=== PATIENT | female | born 1960 | race Two or more races ===

== ENCOUNTER 2024-07-09 16:35 | Emergency (ER) | payer MEDICARE, MEDICAID, SELFPAY ==
[2024-07-09 16:38] VITALS: BP 126/47; PULSE 49; RESP 20; TEMP 36.7; O2SAT 98
[2024-07-09 16:42] VITALS: PULSE 58; RESP 16; O2SAT 99; BMI 29.0
--- NOTE | 2024-07-09 16:51 | EDNOTE_ITS ---
ED General RME/HPI General Chief complaint: General Adult/Misc Complain Stated complaint: bradycardia Time Seen by Provider: 07/09/24 16:46 Arrival date/time: 07/09/24 16:35 RME / HPI RME / HPI narrative: DR. KNOWLES MAIN ED EVALUATION: 64 year old female with a history of massive CVA, bedbound, nonverbal with PEG tube dependent, who presents to the Emergency Department [facility] where correction staff had noticed that she was bradycardic to the 40s and hypotensive and an amp of atropine was given and EMS was activated. Patient is nonverbal without complaints. Related Data Home Medications ?Medication ?Instructions ?Recorded ?Confirmed alprazolam 0.5 mg tablet 0.5 mg feeding tube BID 02/08/22 05/19/24 hydrocodone 5 mg-acetaminophen 325 1 tab feeding tube Q8H PRN Pain 04/02/22 05/19/24 mg tablet polyethylene glycol 3350 17 gram 17 g feeding tube QDAY 04/02/22 05/17/24 oral powder packet (Miralax) tramadol 50 mg tablet 50 mg feeding tube QDAY PRN 04/02/22 05/19/24 Moderate Pain (Scale Score 5-6) amlodipine 10 mg tablet 10 mg feeding tube QDAY Elevated 09/27/23 05/19/24 Blood Pressure empagliflozin 25 mg tablet 25 mg PO QDAY Diabetes Mellitus 09/27/23 05/19/24 (Jardiance) guaifenesin 400 mg tablet 400 mg PO Q4H PRN Congestion 09/27/23 05/19/24 levetiracetam 500 mg tablet 500 mg PO BID Seizures 09/27/23 05/19/24 magnesium hydroxide 400 mg/5 mL 30 ml feeding tube Q72H PRN 09/27/23 05/19/24 oral suspension (Milk of Magnesia) Constipation bisacodyl 10 mg rectal suppository 10 mg MD QDAY PRN Constipation 09/28/23 05/17/24 (Dulcolax (bisacodyl)) cranberry fruit 450 mg tablet 450 mg feeding tube BID 09/28/23 05/17/24 (cranberry) white petrolatum-mineral oil 57.3 1 applic ophthalmic (eye) BID 09/28/23 05/19/24 %-42.5 % eye ointment (Refresh P.M.) epoetin sandro 20,000 unit/mL 20,000 unit subcut QWEEK 03/01/24 05/17/24 injection solution (Epogen) [id number] 1 tab feeding tube QDAY 03/02/24 05/17/24 tablet (Multivitamin 50 Plus tablet) white petrolatum-mineral oil 83 1 applic ophthalmic (eye) Q6H PRN 03/02/24 05/19/24 %-15 % eye ointment (Artificial Eye Irritation Eye Lubricant) acetaminophen 325 mg chewable 650 mg PO [id number] PRN Mild Pain 04/07/24 05/19/24 tablet (Scale Score 1-4) atorvastatin 20 mg tablet 20 mg feeding tube QPM 04/07/24 05/17/24 docusate sodium 100 mg tablet 100 mg PO BID 04/07/24 05/17/24 hydralazine 100 mg tablet 100 mg feeding tube BID 04/07/24 05/19/24 insulin aspart U-100 100 unit/mL 1 sliding scale dose subcut AC PRN 04/07/24 05/17/24 subcutaneous solution (Novolog Hyperglycemia U-100 Insulin aspart) insulin glargine 100 unit/mL 21 unit subcut HS Diabetes 04/07/24 05/19/24 subcutaneous solution (Lantus U-100 Insulin) lactulose 20 gram/30 mL oral 30 g feeding tube BID 04/07/24 05/19/24 solution pen needle, diabetic, safety 30 04/07/24 05/19/24 gauge x 1/3 sodium phosphates 19 gram-7 118 ml MD Q72H PRN Constipation 04/07/24 05/19/24 gram/118 mL enema (Fleet Enema) Saccharomyces boulardii 250 mg 250 mg feeding tube DAILY 05/17/24 05/18/24 capsule (Probiotic (S.boulardii)) apixaban 2.5 mg tablet 2.5 mg feeding tube BID 05/17/24 05/17/24 doxycycline hyclate 100 mg capsule 100 mg feeding tube BID 05/17/24 05/17/24 ipratropium bromide 0.02 % 0.5 mg continuous nebulization 05/17/24 05/17/24 solution for inhalation Q8HR SOB Previous Rx's ?Medication ?Instructions ?Recorded amiodarone 200 mg tablet 200 mg PO QDAY #14 tabs 05/19/24 baclofen 5 mg tablet 5 mg PO HS #14 tabs 05/19/24 Allergies Allergy/AdvReac Type Severity Reaction Status Date / Time No Known Allergies Allergy Verified 12/17/21 13:46 Review of Systems Review of Systems Systems Reviewed: All systems reviewed, normal except as documented Past Medical History Past Medical History NEUROLOGIC: Positive Neurological Disorders, Cerebrovascular Accident, Seizures and Paralysis CARDIAC: Positive Cardiac Disorders, Atrial Fibrillation, Coronary Artery Disease, Atherosclerotic Heart Disease, Peripheral Vascular Disease, Cardiomyopathy and Hypertension GENITOURINARY: Positive Renal Disease ENT: Positive Cataracts ENDOCRINE: Positive Endocrine Disorders and Diabetes Mellitus Type 2 HEMATOLOGIC: Positive Anemia OTHER HISTORY: Positive Hospitalization Surgical History SURGICAL: Positive Gastrostomy Social History SMOKING STATUS: Never smoker SECOND HAND EXPOSURE: No SUBSTANCE USE: does not use ALCOHOL: Never ED Exam Narrative Physical exam: GENERAL APPEARANCE: AxOx4, chronically ill-appearing, bedbound, she does acknowledge her name, maintains good eye contact HEENT: NC, AT. MMM. EOMI, clear conjunctiva, oropharynx clear. NECK: Supple without lymphadenopathy. No stiffness or restricted ROM. HEART: Normal rate and regular rhythm, normal S1/S1, no m/r/g LUNGS: CTAB, moving air well. No crackles or wheezes are heard. ABDOMEN: PEG tube in the left upper quadrant which is clean dry and intact soft, nontender, nondistended with good bowel sounds heard. BACK: No midline C/T/L spine pain or deformity, No CVAT, no obvious deformity. EXTREMITIES: Without cyanosis, clubbing or bilateral lower extremity 2+ edema. MUSCULOSKELETAL: FROM of all major joints, no chest tenderness NEUROLOGICAL: Grossly nonfocal. Awake and acknowledges to her name, paralysis to the right upper and right lower extremity with decreased muscle tone and atrophy. CN not formally tested but appear grossly intact. Bedbound Skin: Warm and dry without any rash. Course Quality Measures none Orders Category Date Time Status XR chest 1V Stat Exams 07/09/24 16:53 Taken CBC Stat Lab 07/09/24 16:49 Ordered CMP [Comprehensive Metabolic Panel] Stat Lab 07/09/24 16:49 Ordered Magnesium Stat Lab 07/09/24 16:49 Ordered Partial Thromboplastin Time Stat Lab 07/09/24 16:50 Ordered Prothrombin Time with INR Stat Lab 07/09/24 16:50 Ordered Troponin I Stat Lab 07/09/24 16:49 Ordered Vital Signs Vital signs: Vital Signs Temperature 98.1 F 07/09/24 16:38 Pulse Rate 49 L 07/09/24 16:38 Respiratory Rate 20 07/09/24 16:38 Blood Pressure 126/47 L 07/09/24 16:38 Pulse Oximetry (%) 98 07/09/24 16:38 Oxygen Delivery Method Room Air 07/09/24 16:38 SpO2 98% on room air, not hypoxic MDM Patient data External records reviewed:: [facility] previous records (Recent admission May 2024 for A-fib bradycardia, no pacemaker was placed at that point, amiodarone was decreased to 200 mg daily) Clinical information provided by:: EMS Social determinants that could affect healthcare access:: none Patient has the following chronic illnesses:: Hemiplegia and hemiparesis affecting right side following CVA, nonverbal at baseline, paroxysmal atrial fibrillation, hypertension, diabetes, anemia in CKD, s/p PEG tube. How is presenting disease/condition affected by chronic disease/condition?: exacerbated by Evaluation data The following diagnostics were reviewed and interpreted by me:: lab results and radiology exam(s) Lab and/or radiology exams considered but not ordered:: Workup in progress Interpretation Summary: Workup in progress Medications Medications considered but not ordered:: Workup in progress Medication administrations:: Workup in progress Consultations Consultation(s) initiated? (list below): No Diagnosis Differential Diagnosis ED Complaint MDM: Workup in progress Most likely diagnosis given after review of the tests above:: Workup in progress Admission Indicated Admission indicated?: indicated Explain why admission is indicated or not indicated:: Workup in progress Admission Request Was there a request for admission?: No Disposition Plan Disposition Plan: other (specify) (Workup in progress) Medical Decision Making MDM Narrative MDM Narrative: ISharmin am scribing for and in the presence of Dr. Knowles. Differential Diagnosis Differential Diagnosis: Workup in progress Critical Care Time Critical Care Time Critical Care Time: Yes Total Critical Care Time (min.): 35 Attestation: Excluding billable procedures for the rep response, analysis, management, treatment, and documentation to vent the very possible risk of cardiovascular decompensation and/or Discharge Plan Prescriptions/Referrals Prescriptions/Med Rec: No Action hydrocodone-acetaminophen 5-325 mg Tablet 1 tab feeding tube Q8H PRN (Reason: Pain) tramadol 50 mg Tablet 50 mg feeding tube QDAY PRN (Reason: Moderate Pain (Scale Score 5-6)) polyethylene glycol 3350 [Miralax] 17 gram Powder In Packet 17 g feeding tube QDAY alprazolam 0.5 mg Tablet 0.5 mg feeding tube BID Epogen 20,000 unit/mL Solution 20,000 unit SUBCUT QWEEK Rx Instructions: Every Tuesday Artificial Eye Lubricant 83-15 % Ointment 1 applic OPHTHALMIC (EYE) Q6H PRN (Reason: Eye Irritation) Multivitamin 50 Plus Tablet 1 tab feeding tube QDAY atorvastatin 20 mg Tablet 20 mg feeding tube QPM docusate sodium 100 mg Tablet 100 mg PO BID acetaminophen 325 mg Tablet,Chewable 650 mg PO [id number] PRN (Reason: Mild Pain (Scale Score 1-4)) hydralazine 100 mg Tablet 100 mg feeding tube BID Hold Instructions: Resume on 04/13/24. hold , follow up with PCP, close monitor BP before restarting Rx Instructions: hold for sbp<120, dbp<60, hr<60 Fleet Enema 19-7 gram/118 mL Enema 118 ml MD Q72H PRN (Reason: Constipation) (DME) pen needle, diabetic, safety 30 gauge x 1/3 Needle lactulose 20 gram/30 mL Solution 30 g feeding tube BID insulin glargine [Lantus U-100 Insulin] 100 unit/mL solution 21 unit SUBCUT HS insulin aspart U-100 [Novolog U-100 Insulin aspart] 100 unit/mL Solution 1 sliding scale dose SUBCUT AC PRN (Reason: Hyperglycemia) Rx Instructions: 150-199=2 units, 200-249=3 units, 250-299=6 units, 300-349=9 units, 400- 450=12 units, notify amlodipine 10 mg Tablet 10 mg feeding tube QDAY guaifenesin 400 mg Tablet 400 mg PO Q4H PRN (Reason: Congestion) Jardiance 25 mg Tablet 25 mg PO QDAY levetiracetam 500 mg Tablet 500 mg PO BID magnesium hydroxide [Milk of Magnesia] 400 mg/5 mL Suspension 30 ml feeding tube Q72H PRN (Reason: Constipation) bisacodyl [Dulcolax (bisacodyl)] 10 mg Suppository 10 mg MD QDAY PRN (Reason: Constipation) cranberry 450 mg Tablet 450 mg feeding tube BID Rx Instructions: administer with meals Refresh P.M. 57.3-42.5 % Ointment 1 applic OPHTHALMIC (EYE) BID Rx Instructions: right eye ipratropium bromide 0.02 % Solution 0.5 mg continuous nebulization Q8HR apixaban 2.5 mg Tablet 2.5 mg feeding tube BID doxycycline hyclate 100 mg Capsule 100 mg feeding tube BID Rx Instructions: END 05/28/24 Saccharomyces boulardii [Probiotic (S.boulardii)] 250 mg Capsule 250 mg feeding tube DAILY amiodarone 200 mg tablet 200 mg PO QDAY Qty: 14 0RF baclofen 5 mg tablet 5 mg PO HS Qty: 14 0RF Problem List Clinical Impression: Atrial fibrillation, chronic, Tachy-iesha syndrome Patient/Caregiver Discharge Instructions Print Language: Setswana
--- NOTE | 2024-07-09 16:53 | XR_ITS ---
Examination: AP chest single view TECHNIQUE: AP portable sitting chest single view Exam date and time: July 09, 2024 at 1707 hours INDICATIONS: Weakness today FINDINGS: Mild prominence left ventricle Vascular congestion No lobar pneumonia or pulmonary edema Prominent osteopenia IMPRESSION: Mild to moderate vascular congestion
--- NOTE | 2024-07-09 17:37 | PC.NURSE ---
Pt resting on stretcher, remains iesha on tele in the mid 50s, provider aware. Pt on o2 via NC spo2 100%. Pt non-verbal has peg tube. call hughes in reach.
[2024-07-09 18:11] LABS: Basophils % (Auto) 1 % (0-2.5); Eosinophils # (Auto) 0.1 Thou/mm3 (0.0-0.5); Eosinophils % (Auto) 2 % (0-10); Hematocrit 43.8 % (36.0-46.0); Hemoglobin 13.8 g/dL (12.0-16.0); Immature Granulocytes % (Auto) 0 % (0-0); Immature Granulocytes Auto 0.01 Thou/mm3 (0.00-0.00); Lymphocytes # (Auto) 1.3 Thou/mm3 (1.0-4.8); Lymphocytes % (Auto) 27 % (10-50); Mean Corpuscular HGB Conc 31.5 g/dl (31.0-37.0); Mean Corpuscular Hemoglobin 28.9 pg (25.0-35.0); Mean Corpuscular Volume 92 fL (80-100); Monocytes # (Auto) 0.7 Thou/mm3 (0.0-0.8); Monocytes % (Auto) 15 % (0-12); Neutrophils # (Auto) 2.6 Thou/mm3 (1.8-7.7); Neutrophils % (Auto) 56 % (37-80); Nucleated Red Blood Cell % 0 /100 WBC (0); Platelet Count 179 Thou/mm3 (140-440); RDW Standard Deviation 57.9 fL (36.4-46.3); Red Blood Count 4.78 Miln/mm3 (4.00-5.20); White Blood Count 4.7 Thou/mm3 (3.6-11.0)
[2024-07-09 18:22] LABS: Partial Thromboplastin Time 27.6 Seconds (22.0-36.0); Prothrombin Time 10.6 Seconds (9.0-12.2)
[2024-07-09 18:31] LABS: Alanine Aminotransferase 14 U/L (10-49); Albumin, Serum 4.4 gm/dL (3.4-4.8); Albumin/Globulin Ratio 1.3 (1.2-2.2); Alkaline Phosphatase 108 U/L (46-116); Anion Gap 10 (7-16); Aspartate Amino Transferase 27 U/L (0-34); BUN/Creatinine Ratio 18 Ratio (12-20); Bilirubin,Total 0.3 mg/dL (0.3-1.2); Blood Urea Nitrogen 23 mg/dL (9-23); Calcium 9.6 mg/dL (8.3-10.6); Calcium (Corrected) 9.6 mg/dL (8.5-10.1); Carbon Dioxide 26.6 mMol/L (20.0-31.0); Chloride 99 mMol/L (98-107); Creatinine (Component) 1.3 mg/dL (0.6-1.3); Estimated Creatinine Clearance 45.9 mL/min (>60); Globulin 3.5 gm/dL (2.3-3.5); Glucose 130 mg/dL (74-106); Magnesium 2.2 mg/dL (1.6-2.6); Osmolality,Calculated 277 (275-295); Potassium 4.1 mMol/L (3.4-5.1); Sodium 136 mMol/L (136-145); Total Protein 7.9 gm/dL (5.7-8.2); Troponin I 0.021 ng/mL (0.0-0.045); eGFR 45 See Note
[2024-07-09 18:58] VITALS: BP 132/84; PULSE 57; RESP 17; TEMP 36.5; O2SAT 97
--- NOTE | 2024-07-09 19:39 | EDNOTE_ITS ---
Emergency Room Addendum Addendum Narrative: I took over the care from Dr. Knowles at 6 PM on 07/09/2024, see his notes for complete H&P and ED course. I reviewed all diagnostic test results. I discussed the case with Dr. Pena (patient's armor reconnaissance vehicle driver). About the presentation and exam and diagnostics and treatments here. And possible need of further care in the hospital. After evaluation in person, he recommended discharge back to the skilled nursing with no changes to her medications, see his consult note. Discharge Instructions from Dr. De Anda: 1. After extensive evaluation, including consult with your armor reconnaissance vehicle driver (Dr. Pena) who saw you in person today, you are being discharged back to your skilled nursing. 2. Unfortunately, you have to live with slow heart rate. Because if you don't take the medication to slow your heart rate, your atrial fibrillation will develop into very fast heart rate which can cause more trouble. 3. Your armor reconnaissance vehicle driver wants you to take all your current medications. 4. He wants to see you in his office on 07/11/2024 for recheck and further care. 5. Seek immediate medical care with worsening or with any concerns. Caleb De Anda MD
[2024-07-09 21:50] VITALS: BP 155/64; PULSE 44; RESP 16; O2SAT 100
--- NOTE | 2024-07-09 22:06 | PC.NURSE ---
Called [facility] and spoke to Graciela BOYLE to whom i gave report too
[2024-07-09 22:23] VITALS: BP 149/72; PULSE 47; RESP 18; TEMP 36.8; O2SAT 99
--- NOTE | 2024-07-09 22:59 | PD.RESCONSUL ---
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 In the ED when she presented the patient was in sinus bradycardia fluctuating between 35-40 heart rate. No history could be taken as the patient is nonverbal at baseline; all history has been taken from chart review. During physical examination, patient appears to be comprehending but is not able to respond to questions; infrequently nods her head to questioning. Medical History: as above Surgical history:PEG placement Medications: as listed Allergies: NKDA FamHx: Positive cardiac history in first degree relative SocHx: Patient is a long time patient at [facility], no etoh, tobacco or illicit drug use ROS: Unable to obtain as patient is nonverbal In the ED, patient's heart rate was 49, blood pressure 126/47, respiratory rate 20, satting 98% on RA. Pertinent lab findings include a white blood cell count of 4.7, hemoglobin 13.8, MCV of 92, platelets 179. potassium 4.1, bicarb of 26.6, glucose of 130, EGFR of 45(baseline CKD stage IIIb), troponin was negative EKG showed atrial fibrillation with slow ventricular rate, left axis deviation, rate 62. Cardiology was consulted for bradycardia cc:: cc: Review of Systems Review of Systems ROS Unobtainable: unobtainable due to mental status Exam Vital Signs Temp Pulse Resp BP Pulse Ox O2 Del Method 98.3 F 47 L 18 149/72 H 99 Room Air 07/09/24 22:23 07/09/24 22:23 07/09/24 22:23 07/09/24 22:23 07/09/24 22:23 07/09/24 21:50 Narrative Exam Constitutional Alert, oriented x 0 and comfortable HEENT Vision grossly intact. Patent nares. Trachea midline Respiratory Chest normal on inspection and clear auscultation bilaterally Cardiovascular S1 and S2 audible, RRR. No murmurs carotid bruit. No gross JVD. Abdominal Soft and non tender to palpation in all quadrants. BS + Genitourinary No bladder tenderness, no flank pain. Normal to palpation Musculoskeletal Extremities tone within normal limits. No LE edema. Skin Warm, dry and intact. No apparent lesions. Results Labs 07/09/24 17:31 07/09/24 17:31 Labs: Short CBC 07/09/24 Range/Units 17:31 WBC 4.7 (3.6-11.0) Thou/mm3 Hgb 13.8 (12.0-16.0) g/dL Hct 43.8 (36.0-46.0) % Plt Count 179 (140-440) Thou/mm3 BMP 07/09/24 17:31 Sodium 136 Potassium 4.1 Chloride 99 Carbon Dioxide 26.6 BUN 23 Creatinine 1.3 Glucose 130 H Calcium 9.6 Cardiac Enzymes 07/09/24 Range/Units 17:31 Troponin I 0.021 (0.0-0.045) ng/mL Liver Function 07/09/24 Range/Units 17:31 Total Bilirubin 0.3 (0.3-1.2) mg/dL AST 27 (0-34) U/L ALT 14 (10-49) U/L Alkaline Phosphatase 108 (46-116) U/L Albumin 4.4 (3.4-4.8) gm/dL Quality Measures Quality Measures none Advance care planning discussed with:: other Medications Home Medications and Allergies Home Medications ?Medication ?Instructions ?Recorded ?Confirmed ?Type alprazolam 0.5 mg tablet 0.5 mg feeding tube BID 02/08/22 05/19/24 History hydrocodone 5 mg-acetaminophen 325 1 tab feeding tube Q8H PRN Pain 04/02/22 05/19/24 History mg tablet polyethylene glycol 3350 17 gram 17 g feeding tube QDAY 04/02/22 05/17/24 History oral powder packet (Miralax) tramadol 50 mg tablet 50 mg feeding tube QDAY PRN 04/02/22 05/19/24 History Moderate Pain (Scale Score 5-6) amlodipine 10 mg tablet 10 mg feeding tube QDAY Elevated 09/27/23 05/19/24 History Blood Pressure empagliflozin 25 mg tablet 25 mg PO QDAY Diabetes Mellitus 09/27/23 05/19/24 History (Jardiance) guaifenesin 400 mg tablet 400 mg PO Q4H PRN Congestion 09/27/23 05/19/24 History levetiracetam 500 mg tablet 500 mg PO BID Seizures 09/27/23 05/19/24 History magnesium hydroxide 400 mg/5 mL 30 ml feeding tube Q72H PRN 09/27/23 05/19/24 History oral suspension (Milk of Magnesia) Constipation bisacodyl 10 mg rectal suppository 10 mg KS QDAY PRN Constipation 09/28/23 05/17/24 History (Dulcolax (bisacodyl)) cranberry fruit 450 mg tablet 450 mg feeding tube BID 09/28/23 05/17/24 History (cranberry) white petrolatum-mineral oil 57.3 1 applic ophthalmic (eye) BID 09/28/23 05/19/24 History %-42.5 % eye ointment (Refresh P.M.) epoetin sandro 20,000 unit/mL 20,000 unit subcut QWEEK 03/01/24 05/17/24 History injection solution (Epogen) [id number] 1 tab feeding tube QDAY 03/02/24 05/17/24 History tablet (Multivitamin 50 Plus tablet) white petrolatum-mineral oil 83 1 applic ophthalmic (eye) Q6H PRN 03/02/24 05/19/24 History %-15 % eye ointment (Artificial Eye Irritation Eye Lubricant) acetaminophen 325 mg chewable 650 mg PO [id number] Mild Pain 04/07/24 05/19/24 History tablet (Scale Score 1-4) atorvastatin 20 mg tablet 20 mg feeding tube QPM 04/07/24 05/17/24 History docusate sodium 100 mg tablet 100 mg PO BID 04/07/24 05/17/24 History hydralazine 100 mg tablet 100 mg feeding tube BID 04/07/24 05/19/24 History insulin aspart U-100 100 unit/mL 1 sliding scale dose subcut AC PRN 04/07/24 05/17/24 History subcutaneous solution (Novolog Hyperglycemia U-100 Insulin aspart) insulin glargine 100 unit/mL 21 unit subcut HS Diabetes 04/07/24 05/19/24 History subcutaneous solution (Lantus U-100 Insulin) lactulose 20 gram/30 mL oral 30 g feeding tube BID 04/07/24 05/19/24 History solution pen needle, diabetic, safety 30 04/07/24 05/19/24 History gauge x 1/3 sodium phosphates 19 gram-7 118 ml KS Q72H PRN Constipation 04/07/24 05/19/24 History gram/118 mL enema (Fleet Enema) Saccharomyces boulardii 250 mg 250 mg feeding tube DAILY 05/17/24 05/18/24 History capsule (Probiotic (S.boulardii)) apixaban 2.5 mg tablet 2.5 mg feeding tube BID 05/17/24 05/17/24 History doxycycline hyclate 100 mg capsule 100 mg feeding tube BID 05/17/24 05/17/24 History ipratropium bromide 0.02 % 0.5 mg continuous nebulization 05/17/24 05/17/24 History solution for inhalation Q8HR SOB Allergies Allergy/AdvReac Type Severity Reaction Status Date / Time No Known Allergies Allergy Verified 12/17/21 13:46 Assessment & Plan Plan A 64-year-old female with a past medical history of paroxysmal atrial fibrillation on amiodarone, possible sick sinus syndrome with history of bradycardia, diastoolic CHF, history of CVA with residual right hemiparesis, 2019 with large infarct left MCA distribution, then with multiple small infarcts in 2021 left and right parietal lobe, nonverbal at baseline, CKD stage III, essential hypertension, hyperlipidemia, type 2 diabetes mellitus, history of chronic anemia, no clear history of GI bleed with no previous EGD as hemoglobin was stable, history of recurrent sepsis secondary to UTI, status post PEG tube after the stroke, history of hydronephrosis, bedbound with contractures was sent in from the [facility] to the emergency department for further evaluation bradycardia. Patient was found to have severe bradycardia upon arrival to the emergency department with a heart rate of around 30 to 40 bpm. Cardiology was consulted for further evaluation. Patient well-known to me from previous admission in March 2024 when patient did present with bradycardia in the setting of severe hyperkalemia secondary to acute kidney injury on chronic kidney disease stage III. Patient did have paroxysmal atrial fibrillation and was started on amiodarone and metoprolol XL but patient did have prolonged pauses along with some bradycardia again and hence metoprolol XL was stopped and patient was just placed on amiodarone 200 mg once daily with which she did well. Patient was also recommended to start on Eliquis 2.5 mg twice daily for anticoagulation and also recommended to do aspirin 81 mg once daily. Patient was discharged on Eliquis 2.5 mg twice daily. Patient today presented to the emergency department for bradycardia. Patient was placed on oxygen via 2 L and saturations did improve to 96% but patient was found to have bradycardia around 40 bpm. EKG was checked and showed afib with svr, with no evidence of any acute ST-T changes. . Assessment and plan: 1. Atrial fibrillation with slow ventricular rate 2. Possible sick sinus syndrome 3. Diastolic CHF 4. Chronic kidney disease stage III 5. Hypoxia and decreased saturations Cardiology was consulted for bradycardia. Patient is in atrial fibrillation with slow ventricular rate. Patient well-known to me from previous admissions and tolerated amiodarone 200 mg once daily previously but no beta-juvencio. Patient home dose is amiodarone 200 Mg p.o. daily and is safe to continue. Avoid any beta-blockers as patient's heart rate is on the lower side. Patient needs to be restarted on Eliquis 2.5 mg twice daily given his history of strokes as mentioned in the previous admissions. Okay to hold off on any aspirin. For blood pressure control continue amlodipine 10 mg once daily and if blood pressure is high then the hydralazine can be increased to 100 mg 3 times daily from 100 mg twice daily. No JADEN/ARB to avoid any kind of hyperkalemia and acute kidney injury with which she presented the previous visits. Patient has a tendency to go severely bradycardic with hyperkalemia and acute kidney injury. Management of rest of the medical conditions as per primary team and other consultants. Thank you for the consult and allowing me to participate in the care of the patient. Cardiology will sign off for now. Connor Bond M.D. Interventional Cardiology Attending Provider Attestation/Addendum I have personally seen and examined the patient separately on the above date of service and discussed the plan of care with the resident. I reviewed the resident consultation progress note and agree with the resident findings and plan in the note above and have also edited the documentation to reflect my findings and plan. Connor Bond M.D. Interventional Cardiology
== END 2024-07-09 22:25 | disposition skilled nursing facility (03) ==
PROVIDERS: Emergency Medicine; Emergency Provider Emergency Medicine
DX: I48.20 Chronic atrial fibrillation, unspecified (principal); I49.5 Sick sinus syndrome; I42.9 Cardiomyopathy, unspecified; I10 Essential (primary) hypertension; Z79.01 Long term (current) use of anticoagulants
CPT/HCPCS: 36415; 71045; 80053; 83735; 84484; 85025; 85610; 85730; 93005; 99283